=== PATIENT | male | born 1965 | race Caucasian/White ===

== ENCOUNTER → 2017-12-23 | Outpatient (CLI) | payer OTHER | LOC: HYPER 06:47 | DX: T81.4XXD Infection following a procedure, subsequent encounter (principal); R60.0 Localized edema; I10 Essential (primary) hypertension; F41.9 Anxiety disorder, unspecified; M19.90 Unspecified osteoarthritis, unspecified site; F31.9 Bipolar disorder, unspecified; Y83.8 Other surgical procedures as the cause of abnormal reaction of the patient, or of later complication, without mention of misadventure at the time of the procedure ==

== ENCOUNTER → 2018-01-12 | Outpatient (CLI) | payer OTHER | LOC: HYPER 06:43 | DX: T81.4XXD Infection following a procedure, subsequent encounter (principal); T81.31XD Disruption of external operation (surgical) wound, not elsewhere classified, subsequent encounter; I10 Essential (primary) hypertension; M19.90 Unspecified osteoarthritis, unspecified site; F41.9 Anxiety disorder, unspecified; F31.9 Bipolar disorder, unspecified; Z68.41 Body mass index [BMI] 40.0-44.9, adult; Z96.652 Presence of left artificial knee joint; Y83.8 Other surgical procedures as the cause of abnormal reaction of the patient, or of later complication, without mention of misadventure at the time of the procedure ==

== ENCOUNTER → 2018-01-20 | Outpatient (CLI) | payer OTHER | LOC: HYPER 07:06 | DX: T81.4XXD Infection following a procedure, subsequent encounter (principal); I10 Essential (primary) hypertension; F31.9 Bipolar disorder, unspecified; R60.0 Localized edema; F41.9 Anxiety disorder, unspecified; M19.90 Unspecified osteoarthritis, unspecified site; R73.09 Other abnormal glucose; Y83.8 Other surgical procedures as the cause of abnormal reaction of the patient, or of later complication, without mention of misadventure at the time of the procedure ==

== ENCOUNTER → 2018-02-03 | Outpatient (CLI) | payer OTHER | LOC: HYPER 06:45 | DX: T81.4XXD Infection following a procedure, subsequent encounter (principal); I10 Essential (primary) hypertension; M19.90 Unspecified osteoarthritis, unspecified site; F41.9 Anxiety disorder, unspecified; F31.9 Bipolar disorder, unspecified; Z96.652 Presence of left artificial knee joint; Z68.41 Body mass index [BMI] 40.0-44.9, adult; Y83.8 Other surgical procedures as the cause of abnormal reaction of the patient, or of later complication, without mention of misadventure at the time of the procedure ==

== ENCOUNTER → 2018-02-19 | Outpatient (CLI) | payer OTHER | LOC: HYPER 08:24 | DX: T81.4XXD Infection following a procedure, subsequent encounter (principal); I10 Essential (primary) hypertension; M19.90 Unspecified osteoarthritis, unspecified site; F31.9 Bipolar disorder, unspecified; F41.9 Anxiety disorder, unspecified; Z96.652 Presence of left artificial knee joint; Y83.8 Other surgical procedures as the cause of abnormal reaction of the patient, or of later complication, without mention of misadventure at the time of the procedure ==

== ENCOUNTER 2020-09-26 14:46 | Inpatient (IN) | payer OTHER ==
[~2020-09-26] VITALS: Ht 190.5 cm; Wt 179.8 kg
[2020-09-26 15:04] VITALS: BP 142/77
[2020-09-26] MEDS ORDERED: ZOLOFT100 MG PO (15:36)
[2020-09-26] MEDS ORDERED: ZYPREXA5 MG PO (15:37)
[2020-09-26] MEDS ORDERED: CYMBALTA60 MG PO (15:38)
[2020-09-26] MEDS ORDERED: AMBIEN 10 MG TA10 MG PO (15:38)
[2020-09-26] MEDS ORDERED: TOPAMAX100 MG PO (15:38)
[2020-09-26] MEDS ORDERED: DIOVAN160 MG PO (15:39)
[2020-09-26] MEDS ORDERED: MELOXICAM15 MG PO (15:39)
[2020-09-26] MEDS ORDERED: NEURONTIN 400400 M1 PO (15:39)
[2020-09-26] MEDS ORDERED: PERCOCET 10-321 EAC1 PO (15:40)
[2020-09-26 17:51] LABS: ABSOLUTE NEUTROPHILS 6.1 thou/uL (1.4-8.2); HEMATOCRIT 31.6 % (42.0-52.0); HEMOGLOBIN 10.4 gm/dL (14.0-18.0); LYMPHOCYTES 20.7 % (24.0-44.0); MCH 29.9 pg (26.0-34.0); MCHC 32.8 g/dL (28.0-37.0); MCV 91.2 fL (80.0-100.0); PLATELET COUNT 251 thou/uL (150-400); POLYS 64.3 % (36.0-66.0); RBC 3.46 mil/uL (4.50-6.00); RDW 13.8 % (10.5-14.5); WBC 9.6 thou/uL (4.0-11.0)
[2020-09-26 17:58] LABS: CALCIUM 8.8 mg/dL (8.5-10.1); CREATININE 1.7 mg/dL (0.7-1.3); POTASSIUM 4.2 mmol/L (3.5-5.1)
[2020-09-26 18:04] LABS: ALBUMIN 3.8 g/dL (3.4-5.0); TOTAL BILIRUBIN 0.2 mg/dL (0.2-1.0); TOTAL PROTEIN 6.6 g/dL (6.4-8.2)
[2020-09-26 19:47] VITALS: BP 136/61
--- NOTE | 2020-09-26 20:23 | NUR ---
ATTEMPTED TO CALL REPORT. 4W STATES THEY WERE UNAWARE THEY WERE GETTING THIS PT AND WILL CALL ER BACK.
[2020-09-26 20:59] VITALS: BP 133/73
[2020-09-26 21:37] VITALS: BP 131/78
[2020-09-26] MEDS ORDERED: METOPROLOL SUCC50 MG PO (22:53)
[2020-09-26] MEDS ORDERED: XANAX 0.5 MG0.5 M1 PO (22:54)
[2020-09-26] MEDS ORDERED: PACERONE200 MG PO (22:56)
[2020-09-27 05:15] LABS: HEMATOCRIT 32.2 % (42.0-52.0); HEMOGLOBIN 10.3 gm/dL (14.0-18.0); MCH 29.6 pg (26.0-34.0); MCV 92.6 fL (80.0-100.0); RBC 3.48 mil/uL (4.50-6.00); RDW 14.3 % (10.5-14.5)
[2020-09-27 05:21] LABS: CALCIUM 8.8 mg/dL (8.5-10.1); CREATININE 1.6 mg/dL (0.7-1.3); POTASSIUM 4.5 mmol/L (3.5-5.1)
[2020-09-27 07:12] VITALS: BP 140/76
--- NOTE | 2020-09-27 07:32 | NUR ---
Pt admitted with right foot wound/cellulitis. A/OX4,VSS. C/o pain to RLE,medicated with Percocet as ordered with some relief reported. Pt reports falling recently tho transfers self to at home,fall education reinforced and pt agrees to call for help as needed. Pt voiding per urinal w/o any problems. Pt resting quietlya at this time w/o any distress noted.
[2020-09-27] MEDS ORDERED: TRILEPTAL300 MG PO (07:52)
[2020-09-27] MEDS ORDERED: ULTRAM50 MG PO (07:54)
--- NOTE | 2020-09-27 12:16 | NUR ---
PT ADMITTED RELATED TO CELLULITIS AND FOOT WOUND. CM REVIEWED CHART AND SPOKE WITH CARE TEAM. CM CALLED AND SPOKE WITH PT OVER THE PHONE THIS DAY. PT APPEARED TO BE A&O X4. CM ROLE INTRODUCED. PT INDICATED HE RESIDES IN AN APARTMENT ALONE WITH NO STEPS TO ENTER AND NO STEPS INSIDE. PT INDICATED HE HAS A WC THAT HE USES TO ASSIST WIHT MOBILITY. PT INDICATED THAT HE HAD BEEN ABLE TO TRANSFER INDEPENDENTLY PHARMACY AIDE. PT INDICATED HE HAD BEEN ON SERVICE WITH [facility] RECENTLY. PT STATED HE HOPES TO BE ABLE TO RETURN HOME ONCE MEDICALLY STABLE. CM TO FOLLOW INDICATED WITH DC PLANNING.
--- NOTE | 2020-09-27 12:48 | NUR ---
ASSUMED PT CARE THIS AM. PT VSS, A&OX4. PT PLEASANT, AND CALLS APPOPRIATELY WHEN NEEDED. FALL PRECAUTIONS ARE IN PLACE. WOUND ON FOOT COVERED IN DRESSING. USING A URINAL WHEN NEEDED. HAS A LEFT BKA. PT RESTING IN ROOM, BEING FREQUENTLY CHECKED ON. TOOK MEDS WELL WITHOUT COMPLAINT THIS MORNING. IV IS PATENT, ANTIBIOTICS INFUSED. PT IS ON TELEMETRY. ON ROOM AIR. PAIN NOTED IN THE RIGHT LEG, RESPONDED WELL TO MEDICATION GIVEN FOR PAIN. ENCOURAGED TO EART AND DRINK FLUID.
[2020-09-27 16:24] VITALS: BP 161/81
[2020-09-27 19:39] VITALS: BP 137/75
[2020-09-28 05:16] LABS: HEMATOCRIT 31.9 % (42.0-52.0); HEMOGLOBIN 10.3 gm/dL (14.0-18.0); MCH 29.4 pg (26.0-34.0); MCHC 32.1 g/dL (28.0-37.0); MCV 91.6 fL (80.0-100.0); RBC 3.49 mil/uL (4.50-6.00); RDW 13.9 % (10.5-14.5); WBC 8.8 thou/uL (4.0-11.0)
[2020-09-28 05:23] LABS: CALCIUM 8.5 mg/dL (8.5-10.1); CREATININE 1.3 mg/dL (0.7-1.3)
[2020-09-28 07:04] VITALS: BP 145/89
[2020-09-28 07:26] VITALS: BP 125/48
--- NOTE | 2020-09-28 08:04 | NUR ---
Assumed pt care at 1900. A/OX4,VSS. C/o pain to RLE,meds given per EMAR. Pt requested for meds not restarted;ZAID Florez notified and meds initiated. Also wanted his Gabapentin;pt notified his BUN/Cr was a little elevated and medication on hold but levels coming down,pt verbalized understanding. New IV inserted on RFA by warehouse processor,Abts given as ordered. Fall precauitons in place,calls approp for help. SA/SR on telemetry.
--- NOTE | 2020-09-28 10:38 | NUR ---
CARE TEAM INDICATED THAT PT IS PROGRESSING TOWARD GOAL OF DISCHARGE. CARE TEAM INDICATED THAT PT CONTINUES ON IV ABX CEFEPIME AND VANC. CARE TEAM INDICATED THAT PT WILL LIKELY REMAIN HERE OVER THE WEEKEND AND MAY NEED PROLONGERD IV ABX WITH HOME INFUSION. PT HAD USED [facility] IN THE PAST. PT INDICATED HE HAD HOME INFUSION IN THE PAST AND THAT HE MIGHT HAVE USED [facility]. PT AGREEABLE WITH REFERRALS BEING SENT TO BOTH FOR REVIEW FOR POSSIBLE SEVICES UPON DC.
--- NOTE | 2020-09-28 13:08 | NUR ---
ASSUMED PT CARE THIS AM. PT VSS, A&OX4. WITHHELD BLOOD PRESSURE MEDS THIS AM DUE TO PULSE BELOW 60. PT COMPLAINS OF PAIN IN THE LEFT FOOT THAT RESPONDS WELL TO PAIN MEDS GIVEN. USING A URINAL WHEN NEEDED. BED MARINE OILER ON BED. TOOK MEDS WITHOUT COMPLAINT THIS AM. FOOT WOUND DRESSING C/D/I. IV PATENT. FALL PRECAUTIONS IN PLACE.
[2020-09-28 14:03] VITALS: BP 155/89
[2020-09-28 20:20] VITALS: BP 124/64
--- NOTE | 2020-09-29 02:46 | NUR ---
PT CARE ASSUMED WITH PT IN BED WATCHING TV.PT IS A/O X4.PT HAS A LT AKA AND WOUND ON RT FOOT.PT USES A URINAL AND BSC AND UP X2 TO BSC.IV ACCESS IN RT FA SL.PT C/O PAIN AND PERCOCET ADMINISTERED FOR PAIN MANANGE.BP MEDICATION NOT GIVEN PULSE 61 .PT IS ON ROOM AIR.WILL CONTINUE TO MONITOR PER POC
[2020-09-29 06:18] LABS: HEMATOCRIT 31.9 % (42.0-52.0); HEMOGLOBIN 10.4 gm/dL (14.0-18.0); MCH 29.9 pg (26.0-34.0); MCHC 32.7 g/dL (28.0-37.0); MCV 91.4 fL (80.0-100.0); RBC 3.49 mil/uL (4.50-6.00); RDW 14.1 % (10.5-14.5); WBC 9.2 thou/uL (4.0-11.0)
[2020-09-29 06:25] LABS: CALCIUM 8.7 mg/dL (8.5-10.1); CREATININE 1.4 mg/dL (0.7-1.3)
--- NOTE | 2020-09-29 07:51 | EKG ---
[address] [place] [address] ELECTROCARDIOGRAM REPORT Name: ROSE KING III Room #: 449- ADM IN M.R.#: [id number] Admission: 09/26/20 Attend Phys: Paul Ferreira MD Discharge: Date of : 63 Report #: [id number] [facility] Test Date: 2020-09-28 Test Time: 17:06:23 Pat Name: ROSE KING Department: Room: [facility] Gender: M Secondary School Teacher: KAROLINA : 1965 Requested By: Paul Ferreira Order Number: [id number] : Ismael Mcbride Measurements Intervals [place] Rate: 76 P: 49 ID: [id number] QRS: -3 QRSD: 160 T: 88 QT: 442 QTc: 498 Interpretive Statements Sinus rhythm Left bundle branch block No previous ECG available for comparison Electronically Signed On 09-29-2020 7:51:03 PROTOZOOLOGIST by Ismael Mcbride [email or web address] <ELECTRONICALLY SIGNED> By: Ismael Mcbride MD, [facility] 09/29/20 0751 [id number] [id number] Ismael Mcbride MD, FACC /EPI
[2020-09-29 08:00] VITALS: BP 157/99
--- NOTE | 2020-09-29 11:21 | NUR ---
Received awake on bed. Due medications given as prescribed, able to swallow meds w/o difficulty. On room air. Vital signs stable. On telemetry; no complains and signs of chest pain, crushing sensation and heaviness. Assisted in ADLs. On regular diet- tolerating well; no nausea, no vomiting and no abdominal pain noted. Continent of bowel and bladder, able to use urinal- output measured and recorded accordingly. Falls bundle in place. With SL at R FA- intact and flushing well; on IV antibiotics. With L AKA; no dressing in place; with prosthesis at bedside. With R foot wound- dressing C/D/I. Complained of pain, due medications given as prescribed. Pt seen and examined by Dr Ferreira- to continue IV antibiotic therapy- to stay over the weekend; CM informed. To continue monitoring patient.
[2020-09-29 16:00] VITALS: BP 144/88
[2020-09-29 19:51] VITALS: BP 108/59
--- NOTE | 2020-09-30 04:10 | NUR ---
Pt. rested quietly at short intervals during the night when checked on during frequent rounds. He c/o pain to the right foot and po pain med given (see emar) with some relief noted. Dressings to right foot are clean,dry and intact. Bed alarm is on.
[2020-09-30 07:38] VITALS: BP 126/80
--- NOTE | 2020-09-30 11:43 | NUR ---
ASSUMED PT CARE THIS AM. PT VSS, A&OX4. PT COMPLAINS OF PAIN IN THE LEFT LEG THAT RESPONDS WELL TO MEDS GIVEN PER EMAR. PT USES A URINAL WHEN NEEDED, REMAINS CONTINENT. DRESSING ON RIGHT FOOT CHANGED, WOUND CARE COMPLETED. PT REPORTS SORENESS ON BOTTOM, REFUSING TO LET STAFF LOOK FOR REDNESS OR SORES ON BOTTOM AT THIS TIME. IV PATENT, MEDS TAKEN WITHOUT COMPLAINT THIS AM. TELE ON. ON ROOM AIR. FALL PRECAUTIONS IN PLACE, CALLING APPROPRIATELY WHEN NEEDED.
[2020-09-30 19:32] VITALS: BP 126/58
[2020-09-30 20:10] VITALS: BP 151/93
--- NOTE | 2020-10-01 04:34 | NUR ---
Pt. has been up most of the night when checked on during frequent rounds. He c/o right foot pain and po pain med given (see emar) with some relief noted. Several requests for coffee throughout the shift. Bed alarm is on.
[2020-10-01 05:49] LABS: HEMATOCRIT 31.4 % (42.0-52.0); HEMOGLOBIN 10.1 gm/dL (14.0-18.0); MCH 29.5 pg (26.0-34.0); MCHC 32.1 g/dL (28.0-37.0); RBC 3.41 mil/uL (4.50-6.00); RDW 13.9 % (10.5-14.5); WBC 8.9 thou/uL (4.0-11.0)
[2020-10-01 06:09] LABS: CALCIUM 8.6 mg/dL (8.5-10.1); CREATININE 1.5 mg/dL (0.7-1.3); POTASSIUM 3.9 mmol/L (3.5-5.1)
[2020-10-01 07:09] VITALS: BP 127/80
--- NOTE | 2020-10-01 12:06 | NUR ---
VAT CONSULTED FOR PICC LINE. PT'S LABS,MEDS,HX,ORDER AND CONSENT VERIFIED. DISCUSSED BENEFITS AND RISK OF PICC WITH PT,VERBALIZED UNDERSTANDING, PADILLA DONNELLY WAS WIDELY PATENT WITH USG. SL PICC TRIMMED TO 50CM INSERTED TO 2CM EXTERNAL. PT TOLERATED WELL. STAT CXR ORDERED
--- NOTE | 2020-10-01 12:44 | NUR ---
cxr confirmed picc placement. released for immediate use per protocol miriam Christensen RN
--- NOTE | 2020-10-01 12:48 | NUR ---
ON-GOING ASSESSMENT: CM REVIEWED CHART AND SPOKE WITH BEDSIDE RN. PT IS TO GET PICC LINE TODAY. [facility] IS FOLLOWING PATIENT [facility]. AWAITING ID RECOMMENDATIONS AT THIS TIME FINAL RECS WILL DETERMINE WHO MUCH HOME INFUSION COSTS FOR THE PATIENT. VISHAL HOLCOMB AT [facility] [phone] STATING THEY NEED 4-6 HOURS IN ADVANCE WITH THE FINAL ORDERS BEFORE THEY CAN HAVE THE MEDS DELIVERED. CM AWAITING INPUT FROM ID AT THIS TIME.
--- NOTE | 2020-10-01 14:27 | NUR ---
ASSUMED PT CARE THIS AM. PT VSS, A&OX4. REDNESS NOTED ON POSTERIOR THIGHS, BARRIER CREAM APPLIED. PT REMAINS CONTINENT, USES URINAL WHEN NEEDED. PICC PLACED BY IV TEAM TODAY. PT TAKEN OFF OF TELEMETRY BY PHYSICIAN ORDER. ON ROOM AIR. PAIN MANAGEABLE FOR PATIENT AT PAIN LEVEL 5 WHEN ASSESSED. CALLING APPROPRIATELY WHEN NEEDED.
--- NOTE | 2020-10-01 15:38 | HC ---
[facility] [place] [address] CONSULTATION Name: CHRISTINEROSE III Room #: 457-[facility] IN ..#: [id number] Admission: 09/26/20 Attend Phys: Paul Ferreira MD Discharge: Date of : 63 Report #: [id number] THIS REPORT FOR: cc: FAM - Family physician unknown FAM - Family physician unknown Gualberto Glover MD ~ DATE OF SERVICE: 09/27/2020 INFECTIOUS DISEASE CONSULTATION REASON FOR CONSULTATION: I was asked to evaluate concerning Charcot foot infection. HISTORY OF PRESENT ILLNESS: A 55-year-old with known history of Ysshapv-Fgkjm-Inman disease with previous left AKA and right Charcot foot infection he has been dealing with for the last year or so. He was most recently seen at [facility] where he had imaging studies and placed on IV therapy followed by one month of outpatient oral therapy. He did not follow up with these physicians per his report. He presents now due to further skin breakdown and inability to improve. Denies any fever, chills or sweats. He has had no increased pain. He does have swelling in his right foot. He has completed his most recent course of oral antibiotic therapy approximately 2 weeks ago. With continued wound to the lateral aspect of his foot and drainage, he was hospitalized through the Emergency Room, placed on broad antibiotic coverage. He has had outside MRI scan and CT scan recently. I have not seen these reports. He denies any fever, chills or sweats. He denies any specific injury. He does walk on his right foot as his main weightbearing extremity. REVIEW OF SYSTEMS: A 14-point review of system was negative other than what has been described above. ALLERGIES: None known. MEDICATIONS: As noted on his MAR, having been given vancomycin and Zosyn in the Emergency Room. PAST MEDICAL HISTORY: Chronic kidney disease, Kzmbyux-Pfdks-Wnpao disease, left AKA, atrial fibrillation, hypertension, anxiety, depression, right lower extremity ulcer, sciatica, chronic pain syndrome, morbid obesity. FAMILY HISTORY: No reported tuberculosis. SOCIAL HISTORY: Nonsmoker, no significant alcohol intake. Lives on his own, not employed. [facility] [address] [place] [address] CONSULTATION Name: ROSE KING III Room #: 457-P [facility] IN [facility].#: [id number] Admission: 09/26/20 Attend Phys: Paul Ferreira MD Discharge: Date of : 63 Report #: [id number] PHYSICAL EXAMINATION: VITAL SIGNS: Afebrile and hemodynamically stable. GENERAL: He was alert and cooperative. SKIN: With ulceration over the lateral aspect of his right hindfoot. There is also some skin breakdown to the plantar aspect of his foot. 2+ edema. Changes of Charcot neuropathy. Sensation to touch was present in the foot. No palpable adenopathy. HEENT: Eyes without scleral icterus. Mouth without mucositis. LUNGS: Clear to auscultation. HEART: Regular, without murmur, gallop, or rub. LUNGS: Clear to auscultation. HEART: Regular, without murmur. ABDOMEN: Soft and nontender. He was obese. EXTREMITIES: Left AKA site without erythema or wound. Right foot Charcot changes with edema in the foot and more fluctuant area involving the hindfoot. LABORATORY STUDIES: Reviewed. MICROBIOLOGY: Reviewed. X-rays of the foot reviewed. Arterial duplex of the right lower extremity reviewed. IMPRESSION: 1. Right Charcot foot, chronic wound infection. 2. Ndkinss-Gocus-Xgfxb disease. 3. Acute kidney injury. 4. Hypertension, atrial fibrillation. 5. Obesity. 6. Bipolar disorder. 7. Left above-knee amputation. RECOMMENDATIONS: 1. Continue with IV antibiotic therapy. Obtain previous records from [facility]. 2. Edema control. 3. Wound care. We will make final recommendations after cultures are back and further imaging studies reviewed. <ELECTRONICALLY SIGNED> By: Gualberto Glover MD 10/01/20 1538 [id number] [id number] Gualberto Glover MD /nt
[2020-10-01 15:42] VITALS: BP 133/75
[2020-10-01 20:00] VITALS: BP 145/88
[2020-10-02 04:45] VITALS: BP 121/69
--- NOTE | 2020-10-02 06:01 | NUR ---
Assumed pt care at 1900. A/OX4, VSS.C/o pain to Right foot, medicated per EMAR with relief reported. PICC line patent on . Voiding per urinal adequaely this shift. Medical records still pending from [facility] still pending, will continue to check on it. Fall precauitons in place, [facility] drawn this am,peneding results.
[2020-10-02 06:03] LABS: HEMATOCRIT 29.8 % (42.0-52.0); HEMOGLOBIN 9.6 gm/dL (14.0-18.0); MCH 29.4 pg (26.0-34.0); MCHC 32.2 g/dL (28.0-37.0); MCV 91.5 fL (80.0-100.0); RBC 3.26 mil/uL (4.50-6.00); RDW 13.6 % (10.5-14.5); WBC 7.7 thou/uL (4.0-11.0)
[2020-10-02 06:27] LABS: CALCIUM 8.4 mg/dL (8.5-10.1); CREATININE 1.3 mg/dL (0.7-1.3); POTASSIUM 4.1 mmol/L (3.5-5.1)
[2020-10-02 07:29] VITALS: BP 121/72
--- NOTE | 2020-10-02 10:14 | NUR ---
Followup: eating 100% of meals. Stated was "saving" nish supplement until he got home. Encouraged pt to trial while here-pt sampled as we were discussing and seemed to tolerate it. States at home uses high protein 30g supplement of Equate equivalent to Premier. Pt eager to be discharged. Low nutrition risk
--- NOTE | 2020-10-02 10:17 | HC ---
[facility] [place] [address] CONSULTATION Name: CHRISTINEROSE III Room #: 457-P ADM IN .R.#: [id number] Admission: 09/26/20 Attend Phys: Paul Ferreira MD Discharge: Date of : 63 Report #: [id number] THIS REPORT FOR: cc: FAM - Family physician unknown FAM - Family physician unknown Markie Power MD ~ DATE OF SERVICE: 09/27/2020 CHIEF COMPLAINT: Ulcerations to the right foot. HISTORY OF PRESENT ILLNESS: This is a 55-year-old male patient who was admitted to the hospital through the Emergency Department late last night. He has a history of Charcot foot deformity, apparently with previous surgical intervention and was admitted with increased pain, redness, swelling and drainage from ulcerations of the right foot. [facility] His records are not directly available to me, although reviewing some of his hospitalization records here, he has had previous course of IV antibiotic in the hospital, 1 month of outpatient oral antibiotics. He has had an MRI and a CT scan, which has been negative for osteomyelitis. He has continued redness, swelling, pain and drainage and has been admitted for further evaluation and treatment. I have been asked to see him with regard to wound care. The patient has a history of atrial fibrillation, hypertension, and bipolar disorder. He states he has stopped taking a lot of his medication because "my heart feels fine" and is more focused on wanting to get his foot better. PAST MEDICAL HISTORY: Again significant for history of chronic kidney disease with some reported history of hemodialysis. He has a history of Charcot foot deformity on the right side. He has a prior left above-knee amputation due to recurrent patellar tendon tears. He did not have any ulcerations or diabetic issues or Charcot deformity to his left foot or leg. He has a history of atrial fibrillation, hypertension, anxiety, depression, bipolar disorder, morbid obesity, chronic pain syndrome. SOCIAL HISTORY: Negative for alcohol or tobacco use. He does live alone. He has a friend that helps him shop. He does not wear a prosthesis on the left side, but does transfer from his bed to the wheelchair and spends most of his time in a wheelchair in his disabled-equipped apartment. FAMILY HISTORY: Unknown. REVIEW OF SYSTEMS: CONSTITUTIONAL: The patient denies fever, chills or weight loss. NEUROLOGICAL: The patient denies focal weakness, numbness or tingling. EYES: The patient denies visual changes, redness, or drainage. [address] [address] CONSULTATION Name: ROSE KING [facility] Room #: 457-P [facility] IN ..#: [id number] Admission: 09/26/20 Attend Phys: Paul Ferreira MD Discharge: Date of : 63 Report #: [id number] ENT: The patient denies earache, nasal drainage, sore throat. CARDIOVASCULAR: The patient denies chest pain, palpitations or diaphoresis. PULMONARY: The patient denies cough or shortness of breath. GASTROINTESTINAL: The patient denies nausea, vomiting, diarrhea or abdominal pain. ORTHOPEDIC: The patient has prior left above-knee amputation. Has ulcerations, redness, drainage and some pain involving the right foot. Other systems in a 14-point review of systems are negative. MEDICATIONS: Include metoprolol, Xanax, Pacerone, Zoloft, Zyprexa, Ambien, Topamax, Cymbalta, Neurontin, meloxicam, Diovan, and Percocet. ALLERGIES: No known drug allergies. PHYSICAL EXAMINATION: VITAL SIGNS: At this time include temperature 36.3, pulse of 64, respiratory rate 16, and blood pressure 161/81. GENERAL: This is a well-developed, well-nourished male patient who is in minimal distress. HEENT: Head normocephalic. Nose and throat clear. NECK: Supple. LUNGS: Diminished. HEART: Irregular. ABDOMEN: Soft, obese, nontender. EXTREMITIES: Lower extremities demonstrate prior left above-knee amputation site. The right foot is moderately swollen with moderate to significant erythema on the lateral portion of the mid and hind foot. There is a linear type ulceration with moderate fibrin on the lateral hindfoot region and several small areas of dry stable eschar involving the toes and forefoot, areas are not tender to palpation. I have difficulty palpating pulses, although he has some edema present at this time. NEUROLOGIC: The patient is alert and oriented. LABORATORY DATA: White blood cell count 11,000, hemoglobin 10.3. Sodium 139, potassium 4.5, chloride 102, CO2 of 27, BUN 30, creatinine 1.6. CRP is elevated at 13.7. Albumin is 3.8. RADIOGRAPHIC DATA: X-ray of the right foot demonstrates extensive chronic changes suspected with chronic collapse of the hindfoot including the talus and the calcaneus with limited assessment, diffuse osteopenia, arthritic changes, diffuse soft tissue edema, but no focal bony erosion identified. Radiologist noted that the exam was somewhat compromised due to the extensive chronic arthritic changes and osteopenia. Arterial Doppler of the lower extremities shows normal triphasic flow throughout the right lower extremity. [address] [address] CONSULTATION Name: ROSE KING III Room #: 457-P [facility] IN [place]#: [id number] Admission: 09/26/20 Attend Phys: Paul Ferreira MD Discharge: Date of : 63 Report #: [id number] CLINICAL IMPRESSION: 1. Chronic ulceration of the right mid to hindfoot with ongoing persistent cellulitis. 2. Acute kidney injury on possible chronic kidney disease. 3. Hypertension. 4. Paroxysmal atrial fibrillation. 5. History of sciatica. 6. History of bipolar disorder and anxiety. 7. Morbid obesity. 8. Prior left above-knee amputation. RECOMMENDATIONS: At this point in time, cultures have been obtained in the Emergency Department. We will certainly need to tailor antibiotics to findings on culture and sensitivity. Recommend empiric antibiotics at this time. He is currently receiving vancomycin and piperacillin, and Infectious diseases has been consulted. We will recommend topical gentamicin ointment to the open area and a border foam to be applied over this. We will recommend Betadine paint to the areas of eschar on the right foot and recommend elevation of the foot for edema control at present as I do not think that the cellulitis may be too significant for external compression. He will need ongoing nutritional support. He may require additional imaging. We will discuss with hospitalist and Infectious Disease. I appreciate being asked to see him in consultation. <ELECTRONICALLY SIGNED> By: Markie Power MD 10/02/20 1017 1751 29 Markie Power MD /nt
--- NOTE | 2020-10-02 15:04 | NUR ---
HOSPITALIST AND ID WERE RECOMMENDING POST ACUTE CARE STAY PT WILL BE ON TWO IV ABX UPON DC. [facility] ARE FOLLOWING PT FOR POSSIBLE SERVICES UPON DC. CM CALLED AND SPOKE WITH PT THIS AM. CM INDICATED THE ABOVE. PT INDICATED HE WAS NOT AT ALL RECEPTIVE TO GOING TO A FACILITY UPON DC THAT HE WANTED TO RETURN HOME WITH HOME INFUSION AND HH SERVICES DUE TO COVID. CM NOTIFIED HOSPITALIST OF PT'S PREFERENCE AND ENCOURAGED PT TO DISCUSS IT WITH HOSPITALIST AND ID DOCTOR WHEN THEY ROUNDED THIS DAY. [facility] WILL NEED 4-6 HOUR NOTICE OF NEEDED DRUGS PRIOR TO DELIVERY OF MEDICATIONS. CM TO FOLLOW INDICATED WITH DC PLANNING.
--- NOTE | 2020-10-02 19:18 | NUR ---
Assumed pt care at 7am.Pt in and out of bed with minimal assist.Assessment completed.vss.Pt up in chair for all meals.Good appetite noted.Dr Glover here later this shift,arranged for pt to dc home with antibiotic per home infusion. prepress manager to assist pt.Home director external communications will be here in am to train pt prior to dc home.Rt foot drsg intact.No verbal c/o.Report off to noc rn.
[2020-10-02 19:27] VITALS: BP 133/79
--- NOTE | 2020-10-03 03:55 | NUR ---
PT IS A/O X4 AND IS UP WITH ASSIST TO HIS CHAIR OR W/C. ROOM AIR. USES A URINAL AT THE BEDSIDE. WOUND CARE COMPLETED AND DOCUMENTED. FALL PRECAUTIONS IN PLACE, CALL LIGHT IS WITHIN REACH
[2020-10-03 07:06] VITALS: BP 126/73
[2020-10-03] MEDS ORDERED: CEFDINIR300 MG PO (14:15)
[2020-10-03] MEDS ORDERED: GENTAMICIN SULF15 GM TOP (14:15)
[2020-10-03] MEDS ORDERED: CLEOCIN HCL300 MG PO (14:15)
[2020-10-03] MEDS ORDERED: PROBIOTIC1 EAC7 PO (14:15)
[2020-10-03 14:44] VITALS: BP 126/73
[2020-10-03 15:07] VITALS: BP 126/73
--- NOTE | 2020-10-03 15:34 | NUR ---
CM FOLLOWED UP WITH [facility] THIS AM AND WITH PT. PT HAD INDICATED THAT HE COULDN'T AFFORD TO PAY $106.00 PER WEEK FOR THE TWO IV ABX AND SUPPLIES. THEY HAD TRIED TO REACH OUT TO HIM TO SET UP PAYMENT PLAN AND PT REFUSED. CM INDICATED THAT ALTERNATIVE WOULD BE SKILLED HE IS STILL REFUSING. PHYSICIAN SWITCHED PT TO TWO ORAL ABX. PT INDICATED HIS GF CAN'T COME PICK HIM UP DUE TO WEATHER AND WOULD NEED TRNASPORT HOME THIS DAY. CM ATTEMPTED TO DO WC VAN WITH [facility] BUT IT IS 496.5 IN A WC OVER 24 INCHES WIDE WHICH [facility] CAN'T ACCOMIDATE. TRIED [facility] AND THEY AREN'T TAKING ROUTINE RESERVATIONS. SET UP BARIATRIC STRETCHER VAN WITH [facility] BUSINESS DIRECTOR BETWEEN [phone]. PT IS AWARE AND AGREEABLE. NO OTHER CM INTERVENTION INDICATED. CASE CLOSED.
--- NOTE | 2020-10-03 19:26 | NUR ---
Assumed pt care at 7am.Pt up in chair most of the time today.Assessment completed.vss.Dr Crews and Belen here,dc order noted.manager of warehouse arranged for transport and home health .Wound picture taken and new drsg applied to rt lateral foot as ordered.Dc summary compiled and reviewed with pt.Picc line dc prior to dc home per Dr Crews.At 1845,pt dc home per stretcher.
== END 2020-10-03 18:45 | disposition home health service (06) | DRG 602 ==
LOC: ER 14:46 → 4W 18:26 → EROBS 18:26 → 4W 21:05
PROVIDERS: Nurse Practitioner Family; Physician Assistant; ADMIT Hospitalist; ATTEND Hospitalist
DX: L03.115 Cellulitis of right lower limb (principal); N17.0 Acute kidney failure with tubular necrosis; Z68.42 Body mass index [BMI] 45.0-49.9, adult; G60.0 Hereditary motor and sensory neuropathy; F31.9 Bipolar disorder, unspecified; I12.9 Hypertensive chronic kidney disease with stage 1 through stage 4 chronic kidney disease, or unspecified chronic kidney disease; F41.9 Anxiety disorder, unspecified; L97.519 Non-pressure chronic ulcer of other part of right foot with unspecified severity; G89.4 Chronic pain syndrome; I48.0 Paroxysmal atrial fibrillation; M54.30 Sciatica, unspecified side; E66.01 Morbid (severe) obesity due to excess calories; N18.9 Chronic kidney disease, unspecified; Z89.612 Acquired absence of left leg above knee; Z91.14 Patient's other noncompliance with medication regimen; Z79.899 Other long term (current) drug therapy
CPT/HCPCS: 10045; 10047; 27000

== ENCOUNTER → 2020-10-17 | Outpatient (CLI) | payer OTHER ==
[~2020-10-17] MED LIST: AMBIEN 10 MG TA10 MG PO; CEFDINIR300 MG PO; CLEOCIN HCL300 MG PO; CYMBALTA60 MG PO; DIOVAN160 MG PO; GENTAMICIN SULF15 GM TOP; MELOXICAM15 MG PO; METOPROLOL SUCC50 MG PO; NEURONTIN 400400 M1 PO; PACERONE200 MG PO; PERCOCET 10-321 EAC1 PO; PROBIOTIC1 EAC7 PO; TOPAMAX100 MG PO; TRILEPTAL300 MG PO; ULTRAM50 MG PO; XANAX 0.5 MG0.5 M1 PO; ZOLOFT100 MG PO; ZYPREXA5 MG PO
== END ==
LOC: HYPER 13:25
PROVIDERS: ATTEND Emergency Medicine
DX: T81.49XA Infection following a procedure, other surgical site, initial encounter (principal); A52.16 Charcot's arthropathy (tabetic); R60.0 Localized edema; I10 Essential (primary) hypertension; F31.9 Bipolar disorder, unspecified; F41.9 Anxiety disorder, unspecified; M19.90 Unspecified osteoarthritis, unspecified site; Z96.652 Presence of left artificial knee joint; Y92.238 Other place in hospital as the place of occurrence of the external cause; Y83.8 Other surgical procedures as the cause of abnormal reaction of the patient, or of later complication, without mention of misadventure at the time of the procedure

== ENCOUNTER → 2020-10-25 | Outpatient (CLI) | payer OTHER | LOC: HYPER 10:44 | PROVIDERS: ATTEND Emergency Medicine | DX: T81.49XD Infection following a procedure, other surgical site, subsequent encounter (principal); A52.16 Charcot's arthropathy (tabetic); R60.0 Localized edema; I10 Essential (primary) hypertension; F31.9 Bipolar disorder, unspecified; F41.9 Anxiety disorder, unspecified; M19.90 Unspecified osteoarthritis, unspecified site; Z96.652 Presence of left artificial knee joint; Y83.8 Other surgical procedures as the cause of abnormal reaction of the patient, or of later complication, without mention of misadventure at the time of the procedure ==

== ENCOUNTER → 2020-11-15 | Outpatient (CLI) | payer OTHER | LOC: HYPER 10:43 | PROVIDERS: ATTEND Emergency Medicine | DX: T81.49XD Infection following a procedure, other surgical site, subsequent encounter (principal); A52.16 Charcot's arthropathy (tabetic); R60.0 Localized edema; I10 Essential (primary) hypertension; M19.90 Unspecified osteoarthritis, unspecified site; F31.9 Bipolar disorder, unspecified; F41.9 Anxiety disorder, unspecified; Z96.652 Presence of left artificial knee joint; Y83.8 Other surgical procedures as the cause of abnormal reaction of the patient, or of later complication, without mention of misadventure at the time of the procedure ==

== ENCOUNTER → 2020-11-28 | Outpatient (CLI) | payer OTHER | LOC: HYPER 14:35 | PROVIDERS: ATTEND Emergency Medicine | DX: T81.31XD Disruption of external operation (surgical) wound, not elsewhere classified, subsequent encounter (principal); L97.312 Non-pressure chronic ulcer of right ankle with fat layer exposed; L03.115 Cellulitis of right lower limb; R60.0 Localized edema; I10 Essential (primary) hypertension; A52.16 Charcot's arthropathy (tabetic); M19.90 Unspecified osteoarthritis, unspecified site; F31.9 Bipolar disorder, unspecified; F41.9 Anxiety disorder, unspecified; Z79.899 Other long term (current) drug therapy; Y83.8 Other surgical procedures as the cause of abnormal reaction of the patient, or of later complication, without mention of misadventure at the time of the procedure ==

== ENCOUNTER → 2020-12-31 | Outpatient (CLI) | payer OTHER | LOC: HYPER 07:52 | PROVIDERS: ATTEND Emergency Medicine | DX: T81.31XD Disruption of external operation (surgical) wound, not elsewhere classified, subsequent encounter (principal); L97.312 Non-pressure chronic ulcer of right ankle with fat layer exposed; L03.115 Cellulitis of right lower limb; R60.1 Generalized edema; I87.2 Venous insufficiency (chronic) (peripheral); I10 Essential (primary) hypertension; A52.16 Charcot's arthropathy (tabetic); M19.90 Unspecified osteoarthritis, unspecified site; F31.9 Bipolar disorder, unspecified; F41.9 Anxiety disorder, unspecified; Y83.8 Other surgical procedures as the cause of abnormal reaction of the patient, or of later complication, without mention of misadventure at the time of the procedure ==

== ENCOUNTER → 2021-01-09 | Outpatient (CLI) | payer OTHER | LOC: HYPER 15:24 | PROVIDERS: ATTEND Emergency Medicine | DX: T81.31XD Disruption of external operation (surgical) wound, not elsewhere classified, subsequent encounter (principal); L97.312 Non-pressure chronic ulcer of right ankle with fat layer exposed; L03.115 Cellulitis of right lower limb; M14.671 Charcot's joint, right ankle and foot; R60.1 Generalized edema; I87.2 Venous insufficiency (chronic) (peripheral); I10 Essential (primary) hypertension; E66.01 Morbid (severe) obesity due to excess calories; M19.90 Unspecified osteoarthritis, unspecified site; F31.9 Bipolar disorder, unspecified; F41.9 Anxiety disorder, unspecified; Z68.1 Body mass index [BMI] 19.9 or less, adult; Y83.8 Other surgical procedures as the cause of abnormal reaction of the patient, or of later complication, without mention of misadventure at the time of the procedure ==

== ENCOUNTER 2021-01-23 09:54 | Inpatient (IN) | payer OTHER ==
[~2021-01-23] VITALS: Ht 190.5 cm; Wt 176.0 kg
[2021-01-23 10:04] VITALS: BP 125/71
[2021-01-23] MEDS ORDERED: DOXYCYCLINE 10100 M2 PO (10:37)
[2021-01-23 11:07] LABS: ABSOLUTE NEUTROPHILS 6.7 thou/uL (1.4-8.2); BASOPHILS 0.8 % (0.0-2.0); EOSINOPHILS 4.5 % (0.0-3.0); HEMATOCRIT 30.3 % (42.0-52.0); HEMOGLOBIN 10.1 gm/dL (14.0-18.0); LYMPHOCYTES 22.9 % (24.0-44.0); MCHC 33.3 g/dL (28.0-37.0); MONOCYTES 7.4 % (1.0-8.0); PLATELET COUNT 223 thou/uL (150-400); POLYS 64.4 % (36.0-66.0); RBC 3.36 mil/uL (4.50-6.00); RDW 14.4 % (10.5-14.5); WBC 10.4 thou/uL (4.0-11.0)
[2021-01-23 11:19] LABS: ANION GAP 7 mmol/L (7-16); BUN 36 mg/dL (7-18); CALCIUM 8.7 mg/dL (8.5-10.1); CHLORIDE 99 mmol/L (98-107); CO2 26 mmol/L (21-32); CREATININE 1.6 mg/dL (0.7-1.3); GLUCOSE 135 mg/dL (74-106); POTASSIUM 4.5 mmol/L (3.5-5.1); SODIUM 132 mmol/L (136-145)
[2021-01-23 11:29] LABS: ALBUMIN 3.4 g/dL (3.4-5.0); SGOT 22 U/L (15-37); SGPT 37 U/L (16-63); TOTAL BILIRUBIN 0.3 mg/dL (0.2-1.0); TOTAL PROTEIN 6.7 g/dL (6.4-8.2); TROPONIN-I <0.06 ng/mL (<0.06)
--- NOTE | 2021-01-23 12:10 | EKG ---
[place] [address] [facility] [place] [address] ELECTROCARDIOGRAM REPORT Name: ROSE KING Room #: REG Joey#: [id number] Admission: 01/23/21 Attend Phys: Discharge: Date of : 63 Report #: [id number] [facility] ED Test Date: 2021-01-23 Test Time: 11:05:53 Pat Name: ROSE KING Department: Room: Gender: Cinema Operator: TARIQ : 1965 Requested By: Griffin Obando Order Number: [id number] MD: Ismael Mcbride Measurements Intervals [place] Rate: 95 P: 71 MT: 175 QRS: -24 QRSD: 152 T: 92 QT: 401 QTc: 504 Interpretive Statements Sinus rhythm Left bundle branch block Compared to ECG 09/28/2020 17:06:23 No significant changes Electronically Signed On 01-23-2021 12:10:08 CDT by Ismael Mcbride [email or web address] <ELECTRONICALLY SIGNED> By: Ismael Mcbride MD, [facility] 01/23/21 1210 1105 1105 Ismael Mcbride MD, FACC /EPI
[2021-01-23 13:19] VITALS: BP 104/72
[2021-01-23] MEDS ORDERED: ALPRAZOLAM 0.50.5 M1 PO (13:51)
[2021-01-23 14:14] VITALS: BP 117/68
[2021-01-23 14:24] VITALS: BP 129/78
[2021-01-23 15:05] LABS: FOLIC ACID 28.1 ng/mL (8.6-58.9)
--- NOTE | 2021-01-23 18:20 | NUR ---
PT ARRIVED TO FLOOR PER CART FROM ED AROUND 1400 IN STABLE CONDITION.ADMISSION HX,ASSESSMENT AND CAREPLAN COMPLETED.CONSULT CALLED TO DRS ORDERED.IVPB ATB GIVEN ORDERED.PT C/O RT LEG PAIN RATED 6/10. TRAMADOL GIVEN ORDERED WITH RELIEF.DINNER GIVEN THIS EVENING.PT ATE 100% LASIX IVP GIVEN WITH DIUESIS.PT VOIDED APPROX.OVER 3000ML CLEAR YELLOW URINE.NO VERBAL C/O.WILL CONTINUE TO MONITOR.
[2021-01-23 19:12] VITALS: BP 156/93
[2021-01-24 05:15] LABS: ABSOLUTE NEUTROPHILS 5.6 thou/uL (1.4-8.2); BASOPHILS 0.7 % (0.0-2.0); HEMATOCRIT 31.3 % (42.0-52.0); HEMOGLOBIN 10.4 gm/dL (14.0-18.0); LYMPHOCYTES 21.5 % (24.0-44.0); MCHC 33.2 g/dL (28.0-37.0); MCV 90.3 fL (80.0-100.0); MONOCYTES 7.7 % (1.0-8.0); PLATELET COUNT 211 thou/uL (150-400); POLYS 65.1 % (36.0-66.0); RBC 3.47 mil/uL (4.50-6.00); WBC 8.5 thou/uL (4.0-11.0)
[2021-01-24 05:32] LABS: CALCIUM 8.3 mg/dL (8.5-10.1); CREATININE 1.6 mg/dL (0.7-1.3); MAGNESIUM 2.2 mg/dL (1.8-2.4)
--- NOTE | 2021-01-24 06:01 | NUR ---
Assumed pt care at 1900. A/OX4,with flat affect. VSS. C/o RLE/sciatica pain not relief by Tramadol. Yvette AUTO CLUTCH SPECIALIST notified,new order for Fentanyl 25mcg given;pt verbalizes relief. Up with SBA to WC,pt has a left AKA. RLE warm/swollen, encouraged to keep extremity elevated and does so. Taken down for CT scan of RLE negative for osteo,pt updated. Resting quietly in bed at this time,no distress noted. Fall precautions in place,will continue to monitor pt.
[2021-01-24 07:31] VITALS: BP 127/90
--- NOTE | 2021-01-24 14:20 | NUR ---
Nutrition: RD received consult stating "overweight". BMI 49.9 extreme class 3 obesity. Admitted with cellulitis right lower leg. CT negative for osteo. PMH: CKD, L AKA, HTN, Charcot Joya atrophy. Eating 100% of meals on heart healthy diet. Takes high protein supplement at home and agrees to ensure max daily in hospital. Pt sleepy due to pain meds but agreed to RD leaving diet materials at bedside related to weight loss/heart healthy diet. Low nutrition risk.
--- NOTE | 2021-01-24 14:44 | NUR ---
PT ADMITTED RELATED TO CELLULITIS RIGHT LOWER LEG. CM REVIEWED CHART AND SPOKE WITH CARE TEAM. CM MET WITH PT AT BEDSIDE THIS DAY. PT APPEARED TO BE A&O X4. CM ROLE INTRODUCED. PT INDICATED HE RESIDES ALONE IN A HANDICAPPED APPARTMENT WITH NO STEPS TO ENTER AND NONE INSIDE. PT INDICATED HE HAS A MANUAL WC FOR HOME USE. PT INDICATED HE HAD BEEN COMING TO OP WC CLIN[facility] MANAGER. PT HAD BEEN ON SERVICE WITH [facility] IN THE RECENT PAST. PT'S PSP IS DR. HOA BALDERAS. PT INDICATED HE WILL LIKELY NEED TRANSPORT HOME ONCE MEDICALLY STABLE. PT PLANS TO RETUNE HOME UPON DC. ID AND WC CONSULTED. CM FOLLOWING REGARDING POSSIBLE DC NEEDS.
[2021-01-24 15:35] VITALS: BP 141/82
--- NOTE | 2021-01-24 18:23 | NUR ---
ASSUMED CARE OF PATIENT AT SHIFT CHNAGE. ASSESSMENT CHARTED. MEDICATIONS ADMINISTERED PER EMAR. VSS. PATIENT IS A&OX4; ABLE TO MAKE NEEDS KNOWN. USING URINAL AT BEDSIDE AND VOIDING WELL. PATIENT VOICES PAIN 9/ AND REQUESTED MEDS HE WAS TAKING (GABAPENTIN, 100MG ULTRAM) TO BE RESTARTED. PROVIDER NOTIFIED. NEW WOUND CARE ORDERS IN; WOUND CARE COMPLETED THIS AFTERNOON. PATIENT TRANSFERS SBA PIVOTING OVER TO AND TOLERATES WELL. PATIENT TOLERATING DIET WELL. NAPPING OFF AND ON DURING DAY. VOICES NO FURTHER NEEDS. WILL CONTINUE TO MONITOR AND FOLLOW PLAN OF CARE
[2021-01-24 19:26] VITALS: BP 140/70
--- NOTE | 2021-01-25 05:00 | NUR ---
ASSSUMED CARE OF PT AT SHIFT CHANGE. PT IS AOX3-4 AND LETS NEEDS BE KNOWN. FALL PRECAUTION IN PLACE FOR SAFETY. ASSESSMENT CHARTED. PT DENIED PAIN, NAUSEA OR SOA. ABX TREATMENT CONTINUED. PT WAS ABLE TO GET COMFORTABLE AND SLEEP PART OF THE SHIFT. VSS AND NO S/S OF ACUTE DISTRESS. WILL CONTINUE TO MONITOR.
[2021-01-25 07:39] VITALS: BP 140/81
--- NOTE | 2021-01-25 12:54 | NUR ---
FAXED REFERRAL TO [facility]. CONFIRMED WITH MIRNA/INTAKE THAT THEY RECEIVED AND PATIENT WILL BE READY TO DISCHARGE TOMORRW, 01/26/21. [facility] P [phone]; FAX [phone]
[2021-01-25] MEDS ORDERED: CEPHALEXIN500 MG PO (13:36)
[2021-01-25 13:39] VITALS: BP 140/81
[2021-01-25 14:08] VITALS: BP 140/81
--- NOTE | 2021-01-25 14:10 | NUR ---
CARE TEAM INDICATED THAT PT IS MEDICALLY STABLE TO DISCHARGE HOME THIS DAY. PT HAS BEEN SWITCHED TO ORAL ABX. REFERRAL SENT TO [facility] FOR PT, OT, AND NURSING HH SERVICES UPON DC. PT HAS TRANSPORT ABLE TO PICK HIM UP LATER THIS AFTERNOON. NO OTHER CM INTERVENTION INDICATED. CASE CLOSED.
[2021-01-25 15:08] VITALS: BP 147/73
--- NOTE | 2021-01-25 15:29 | NUR ---
FAXED DISCHARGE ORDERS, SUMMARY AND CLINICAL UPDATES TO [facility]. CONFIRMED WITH NATHANAEL/INTAKE THAT SHE RECEIVED. [facility] P [phone]; FAX [phone]
--- NOTE | 2021-01-25 18:01 | NUR ---
ASSUMED CARE OF PATIENT AT SHIFT CHANGE. ASSESSMENT CHARTED. MEDICATIONS ADMINISTERED PER EMAR. VSS. PATIENT REMIANS A&OX4 AND ABLE TO VOICE NEEDS. PATIENT TRANSFERS FROM BED TO WHEELCHAIR STANDBY ASSIST BY PIVOTING SELF AND TOLERATES WELL. WOUND CARE COMPLETE TO LOWER R EXTREMITY; PATIENT EDUCATED ON WOUND CARES AND PATIENT COMMUNICATED UNDERSTANDING. PATIENT DID EXPRESS CONCERN ABOUT NEEDING HOME HEALTH TO ASSIST; CM NOTIFIED AND [facility] WAS CONTACTED. PATIENT VOIDING WELL; NO BM BUT CONTINUES TO DENY ABDOMINAL DISCOMFORT OR URGE TO HAVE A BM. PATIENT STATED HIS RIDE WOULD BE HERE "LATER IN THE EVENING" TO PICK HIM UP. DISCHARGE ORDERS IN, PRINTED EDUCATION AND RX INFO GIVEN TO PATIENT. PATIENT GIVEN OPPORTUNITY TO ASK QUESTIONS. IV DISCONTINUED. PATIENT EXPRESSED NO FURTHER CONCERNS AT TIME OF DISCHARGE.
--- NOTE | 2021-01-28 18:41 | HC ---
[facility] [place] [address] CONSULTATION Name: ROSE KING Room #: 458-P [facility] IN M.R.#: [id number] Admission: 01/23/21 Attend Phys: Radha Lara MD Discharge: 01/25/21 Date of : 63 Report #: [id number] THIS REPORT FOR: cc: FAM - Family physician unknown FAM - Family physician unknown Markie Power MD ~ DOC #: [id number] Markie Power MD HISTORY OF PRESENT ILLNESS: This is a 55-year-old male patient who has a history of a wound to his right ankle. He has had previous wound infections and been slow to heal. It ultimately has resolved. He has had a previous amputation on the left side. He was admitted to the hospital with increased swelling and weeping edema to his left leg and I have been asked to see him with regard to wound care. PAST MEDICAL HISTORY: Positive for history of chronic kidney disease, Ioqkdqg-Mmpnu-Ggjhk, previous left above-knee amputation, history of atrial fibrillation, hypertension, anxiety, depression, sciatica, chronic ulcer to the right lower extremity, and morbid obesity. SOCIAL HISTORY: Negative for alcohol or tobacco use. FAMILY HISTORY: Noncontributory. CURRENT MEDICATIONS: Include Xanax, alprazolam, Trileptal, Ultram, Zyprexa, Ambien, Topamax, Cymbalta, Neurontin, and Diovan. ALLERGIES: No known drug allergies. REVIEW OF SYSTEMS: CONSTITUTIONAL: The patient denies fever, chills or weight loss. NEUROLOGICAL: The patient denies focal weakness, numbness or tingling. EYES: The patient denies visual changes, redness, drainage. ENT: The patient denies earache, nasal drainage, sore throat. CARDIOVASCULAR: The patient denies chest pain, palpitations, diaphoresis. PULMONARY: Denies cough, shortness of breath. GASTROINTESTINAL: Denies nausea, vomiting, diarrhea or abdominal pain. ORTHOPEDIC: The patient notes some pain, swelling and weepiness to his right ankle. Others systems on a 14-point review of systems are negative. PHYSICAL EXAMINATION: VITAL SIGNS: At this time include temperature 36.7, pulse 87, respiration 20, blood pressure 127/90. [address] [address] CONSULTATION Name: ROSE KING Room #: 458-P [facility] IN ..#: [id number] Admission: 01/23/21 Attend Phys: Radha Lara MD Discharge: 01/25/21 Date of : 63 Report #: [id number] GENERAL: This is a well-developed male patient, appears to be in minimal distress. HEENT: Head normocephalic. Nose and throat clear. NECK: Supple. LUNGS: Clear. ABDOMEN: Soft, bowel sounds present. Abdomen is morbidly obese. EXTREMITIES: Lower extremities demonstrate 2-3+ edema of the right lower extremity, evidence of prior ulceration can be seen and some of the scarring in the skin, but there are no open ulcers. There is no weeping. There is no drainage and there is minimal, if any, erythema at this time. Left extremity is noted for above-knee amputation. LABORATORY DATA: Includes sodium 137, potassium 4.0, chloride 100, CO2 of 27, BUN 34, creatinine 1.5. White blood cell count is 8.5 with a hemoglobin of 10.4. CLINICAL IMPRESSION: 1. Right lower extremity edema with a history of chronic lymphedema. 2. Prior ulceration to the right lower extremity, now closed. 3. Pgsluub-Kcrng-Rmxoa. 4. Super morbid obesity. 5. History of paroxysmal atrial fibrillation. RECOMMENDATIONS: At this point in time, we will recommend AmLactin lotion to the skin and Tubigrip and elevation to control edema. He is to use his KAKTOVIK walker when he is ambulatory. Continue medical management of his other underlying health issues. I appreciate being asked to see him in consultation. Markie Power MD JRA/HEM/UPE <ELECTRONICALLY SIGNED> By: Markie Power MD 01/28/21 1841 [id number] Markie Power MD /nt
== END 2021-01-25 18:30 | disposition home health service (06) | DRG 603 ==
LOC: ER 09:54 → EROBS 13:21 → 4W 13:21
PROVIDERS: Emergency Medicine; Nurse Practitioner; ADMIT Internal Medicine; ATTEND Internal Medicine
DX: L03.115 Cellulitis of right lower limb (principal); N17.9 Acute kidney failure, unspecified; I48.20 Chronic atrial fibrillation, unspecified; Z68.42 Body mass index [BMI] 45.0-49.9, adult; I48.0 Paroxysmal atrial fibrillation; F41.9 Anxiety disorder, unspecified; F32.9 Major depressive disorder, single episode, unspecified; E66.01 Morbid (severe) obesity due to excess calories; I12.9 Hypertensive chronic kidney disease with stage 1 through stage 4 chronic kidney disease, or unspecified chronic kidney disease; G89.4 Chronic pain syndrome; M54.30 Sciatica, unspecified side; N18.30 Chronic kidney disease, stage 3 unspecified; E87.70 Fluid overload, unspecified; G60.0 Hereditary motor and sensory neuropathy; M14.671 Charcot's joint, right ankle and foot; R53.81 Other malaise; Z79.899 Other long term (current) drug therapy; Z89.612 Acquired absence of left leg above knee; Z86.14 Personal history of Methicillin resistant Staphylococcus aureus infection
CPT/HCPCS: 10040

== ENCOUNTER → 2021-01-29 | Outpatient (CLI) | payer OTHER ==
[~2021-01-29] MED LIST changes: +ALPRAZOLAM 0.50.5 M1 PO; +CEPHALEXIN500 MG PO; +DOXYCYCLINE 10100 M2 PO
== END ==
LOC: HYPER 08:41
PROVIDERS: ATTEND Emergency Medicine
DX: T81.31XD Disruption of external operation (surgical) wound, not elsewhere classified, subsequent encounter (principal); L97.312 Non-pressure chronic ulcer of right ankle with fat layer exposed; L03.115 Cellulitis of right lower limb; M14.671 Charcot's joint, right ankle and foot; R60.1 Generalized edema; I87.2 Venous insufficiency (chronic) (peripheral); I10 Essential (primary) hypertension; E66.01 Morbid (severe) obesity due to excess calories; M19.90 Unspecified osteoarthritis, unspecified site; F31.9 Bipolar disorder, unspecified; F41.9 Anxiety disorder, unspecified; Z68.1 Body mass index [BMI] 19.9 or less, adult; Y83.8 Other surgical procedures as the cause of abnormal reaction of the patient, or of later complication, without mention of misadventure at the time of the procedure

== ENCOUNTER → 2021-02-07 | Outpatient (CLI) | payer OTHER | LOC: HYPER 09:59 | PROVIDERS: ATTEND Emergency Medicine | DX: L03.115 Cellulitis of right lower limb (principal); I87.2 Venous insufficiency (chronic) (peripheral); R60.1 Generalized edema; M14.671 Charcot's joint, right ankle and foot; I10 Essential (primary) hypertension; M19.90 Unspecified osteoarthritis, unspecified site; E66.01 Morbid (severe) obesity due to excess calories; F41.9 Anxiety disorder, unspecified; F31.9 Bipolar disorder, unspecified; Z68.42 Body mass index [BMI] 45.0-49.9, adult; Z96.652 Presence of left artificial knee joint; Z79.899 Other long term (current) drug therapy ==

== ENCOUNTER → 2021-02-28 | Outpatient (CLI) | payer OTHER | LOC: HYPER 07:49 | PROVIDERS: ATTEND Emergency Medicine | DX: L03.115 Cellulitis of right lower limb (principal); L84 Corns and callosities; R60.1 Generalized edema; M14.671 Charcot's joint, right ankle and foot; I87.2 Venous insufficiency (chronic) (peripheral); I10 Essential (primary) hypertension; M19.90 Unspecified osteoarthritis, unspecified site; E66.01 Morbid (severe) obesity due to excess calories; F41.9 Anxiety disorder, unspecified; F31.9 Bipolar disorder, unspecified; Z68.42 Body mass index [BMI] 45.0-49.9, adult; Z96.652 Presence of left artificial knee joint; Z79.899 Other long term (current) drug therapy ==

== ENCOUNTER → 2021-03-28 | Outpatient (CLI) | payer OTHER | LOC: HYPER 08:04 | PROVIDERS: ATTEND Emergency Medicine | DX: S81.801D Unspecified open wound, right lower leg, subsequent encounter (principal); I87.2 Venous insufficiency (chronic) (peripheral); R60.1 Generalized edema; M14.671 Charcot's joint, right ankle and foot; L03.115 Cellulitis of right lower limb; M19.90 Unspecified osteoarthritis, unspecified site; I10 Essential (primary) hypertension; E66.01 Morbid (severe) obesity due to excess calories; F41.9 Anxiety disorder, unspecified; F31.9 Bipolar disorder, unspecified; Z68.42 Body mass index [BMI] 45.0-49.9, adult; Z98.890 Other specified postprocedural states; Z96.652 Presence of left artificial knee joint; Z79.899 Other long term (current) drug therapy; X58.XXXD Exposure to other specified factors, subsequent encounter ==